=== PATIENT | male | born 1995 | race Asian ===

== ENCOUNTER 2020-06-04 18:10 | Emergency (ER) | payer SELFPAY ==
[~2020-06-04] VITALS: Ht 188 cm; Wt 114.3 kg
--- NOTE | 2020-06-04 19:16 | NUR ---
PT HERE FOR LANCE SINCE FRIDAY WITH N/V AND PHOTOPHOBIA. PT HAS TRIED TYLENOL AND IBUPROFEN WITH NO RELIEF. VSS. PT RESTING WITH NO NEEDS AT THIS TIME. CALL LIGHT IN REACH
--- NOTE | 2020-06-04 19:28 | NUR ---
PT TO CT
[2020-06-04] MEDS ORDERED: ONDANSETRON ODT 4 MG PO ONE (19:35)
[2020-06-04] MEDS ORDERED: ONDANSETRON ODT 4 MG ONE (19:41)
[2020-06-04] MEDS ORDERED: HYDROmorphone 1 MG/ML, 1ML INJ ONE (19:41)
[2020-06-04] MEDS ORDERED: HYDROmorphone 2 MG/ML, 1ML IM PRN (20:00)
--- NOTE | 2020-06-04 20:04 | NUR ---
pt medicated for pain and nausea. pt resting waiting for ct results
[2020-06-04 20:28] VITALS: BP 145/75
--- NOTE | 2020-06-04 20:46 | NUR ---
RECEIVED REPORT FROM MATT DAWKINS. AWAITING DC PAPERWORK AT THIS TIME.
== END 2020-06-04 21:13 | disposition home or self-care (01) ==
LOC: ED 20:40
DX: R51 Headache (principal); R11.0 Nausea; H53.149 Visual discomfort, unspecified; R00.0 Tachycardia, unspecified
CPT/HCPCS: 70450; 96372; 99284; J1170; Q0162; 36415; 87635